=== PATIENT | male | born 1990 | race Native Hawaiian/Other Pacific Islander ===

== ENCOUNTER 2017-01-21 18:45 | Inpatient (IN) | payer OTHER ==
[~2017-01-21] VITALS: Ht 167.6 cm; Wt 79.4 kg
[2017-01-21] MEDS ORDERED: methylPREDNISolone 125 MG (Solu-MEDROL) VIAL IV STA (19:10)
[2017-01-21] MEDS ORDERED: NS IV 1000 ML 1,000 ML IV ONE (19:10)
[2017-01-21] MEDS ORDERED: KETOROLAC 30 MG/ML VIAL IVP STA (19:10)
[2017-01-21] MEDS ORDERED: ONDANSETRON 4 MG/2 ML (SDV) Z0FRAN IVP ONE (19:15)
[2017-01-21] MEDS ORDERED: diphenhydrAMINE 25 MG TAB (BENADRYL) PO ONE (19:15)
--- NOTE | 2017-01-21 19:15 | ED Integumentary General ---
General Chief Complaint: Bite-Animal/Human/Insect Stated Complaint: SPIDER BITE ON BACK Nursing Triage Note: patient reports spider bite to R shoulder x 3 days. Source: patient Exam Limitations: no limitations History of Present Illness Time seen by provider: 19:04 Initial Comments 26-year-old male patient presents to the emergency department with complaints of spider bite to the rt posterior shoulder 3 days ago. Patient states he killed the spider and has it at home in a container. States it has the classic violin marking of a brown recluse. Patient states he cleaned his apartment out that day. Patient reports 3 day onset of rash, pruritus, headache, nausea, poor appetite, headache, and generalized body aches. States today he began running a fever. Does have alternating chills and sweats. Location Injury Occurred: home Timing/Duration: getting worse, other (3 day onset) Location: extremities (rt posterior shoulder spider bite. ), generalized (rash) Possible Cause: other (spider bite) Modifying Factors: worse with scratching, worse with other (no improvement with ynvj-egw-fqtlvqo medications) Associated Symptoms: No blisters, No edema, fever, headache, No jaundice, malaise, No nasal congestion, No numbness, No pallor, No paresthesia, No petechiae, rash, No sore throat, swelling/mass/lumps ((right posterior shoulder) ) Allergies and Home Medications Allergies Coded Allergies: No Known Drug Allergies (Unverified , 01/21/17) Home Medications No Active Prescriptions or Reported Meds Constitutional: chills, diaphoresis (intermittent diaphoresis.), No dizziness, fever, malaise, No weakness EENTM: No ear discharge, No ear pain, No hoarseness, No mouth pain, No mouth swelling, No nose congestion, No tearing, No throat pain, No throat swelling Respiratory: No cough, No phlegm, No short of breath, No stridor, No wheezing Cardiovascular: No chest pain, No edema, No palpitations, No syncope Gastrointestinal: see HPI, No abdominal pain, No constipation, No diarrhea, loss of appetite, nausea, No vomiting Genitourinary: No decreased output, No dysuria, frequency, No hematuria, No pain Musculoskeletal: see HPI, joint pain (rt posterior shoulder pain.), No neck pain Skin: see HPI, lesions (rt posterior shoulder bite. ), pruritus, rash Psychiatric/Neurological: Headache, Denies Numbness, Denies Paresthesia, Denies Seizure, Denies Tingling, Denies Weakness All Other Systems Reviewed Negative Unless Noted: Yes (Negative excepted noted.) Past Bsyjvlv-Pxrqrp-Msvlci Hx Patient Social History Alcohol Use: Occasionally Uses Recreational Drug Use: Yes Drug of Choice: THC Smoking Status: Never a Smoker Recent Foreign Travel: No Contact w/Someone Who Travel: No Recent Infectious Disease Expo: No Immunizations Up To Date Tetanus Booster (TDap): Unknown Seasonal Allergies Seasonal Allergies: No Surgeries HX Surgeries: No Respiratory Hx Respiratory Disorders: No Cardiovascular Hx Cardiac Disorders: No Neurological Hx Neurological Disorders: No Genitourinary Hx Genitourinary Disorders: No Gastrointestinal Hx Gastrointestinal Disorders: No Musculoskeletal Hx Musculoskeletal Disorders: No Endocrine Hx Endocrine Disorders: No HEENT HX ENT Disorders: No Integumentary HX Skin/Integumentary Disorder: No Reviewed Nursing Assessment Reviewed/Agree w Nursing PMH: Yes Family Medical History Significant Family History: No Pertinent Family Hx Physical Exam Vital Signs Vital Sign - Last 12Hours 01/21/17 18:58 Temp 100.4 Pulse 100 Resp 18 B/P (MAP) 128/59 Pulse Ox 99 O2 Delivery Room Air Capillary Refill : Less Than 3 Seconds General Appearance: WD/WN, no apparent distress HEENT: PERRL/EOMI, pharynx normal Neck: non-tender, full range of motion, supple Cardiovascular: normal peripheral pulses, no edema, no murmur, tachycardia Respiratory: lungs clear, normal breath sounds, no respiratory distress Gastrointestinal: non tender, soft, No distended Back: other (see skin exam) Extremities: no pedal edema, normal capillary refill, inflammation (5x4 cm area of erythema with mild induration and central necrosis noted on the rt posterior shoulder. No active drainage or fluctuance noted. Soft tissue tenderness.) Neurologic/Psychiatric: proposal coordinator II-XII nml as tested, no motor/sensory deficits, alert, normal mood/affect, oriented x 3 Skin: warm/dry, rash Skin Problem Location: generalized Skin Problem Character: erythema (right posterior shoulder), rash, swelling ( right posterior shoulder), tenderness (right posterior shoulder), urticarial, warm (right posterior shoulder), other (induration and central necrosis noted on the right posterior shoulder) Progress/Results/Core Measures Results/Orders Lab Results Laboratory Tests Test 01/21/17 19:20 01/21/17 19:59 Range/Units White Blood Count 23.4 H 4.3-11.0 10^3/uL Red Blood Count 5.40 4.35-5.85 10^6/uL Hemoglobin 15.9 13.3-17.7 G/DL Hematocrit 47 40-54 % Mean Corpuscular Volume 87 80-99 FL Mean Corpuscular Hemoglobin 29 25-34 PG Mean Corpuscular Hemoglobin Concent 34 32-36 G/DL Red Cell Distribution Width 13.1 10.0-14.5 % Platelet Count 245 130-400 10^3/uL Mean Platelet Volume 9.4 7.4-10.4 FL Neutrophils (%) (Auto) 88 H 42-75 % Lymphocytes (%) (Auto) 6 L 12-44 % Monocytes (%) (Auto) 3 0-12 % Eosinophils (%) (Auto) 3 0-10 % Basophils (%) (Auto) 0 0-10 % Neutrophils # (Auto) 20.6 H 1.8-7.8 X 10^3 Lymphocytes # (Auto) 1.3 1.0-4.0 X 10^3 Monocytes # (Auto) 0.7 0.0-1.0 X 10^3 Eosinophils # (Auto) 0.7 H 0.0-0.3 10^3/uL Basophils # (Auto) 0.0 0.0-0.1 10^3/uL Neutrophils % (Manual) 75 % Lymphocytes % (Manual) 4 % Monocytes % (Manual) 6 % Eosinophils % (Manual) 3 % Basophils % (Manual) 0 % Band Neutrophils 12 % Blood Morphology Comment NORMAL Erythrocyte Sedimentation Rate 6 0-15 MM/HR Prothrombin Time 13.7 12.2-14.7 SEC INR Comment 1.1 0.8-1.4 Activated Partial Thromboplast Time 30 24-35 SEC Sodium Level 134 L 135-145 MMOL/L Potassium Level 3.9 3.6-5.0 MMOL/L Chloride Level 103 98-107 MMOL/L Carbon Dioxide Level 21 21-32 MMOL/L Anion Gap 10 5-14 MMOL/L Blood Urea Nitrogen 9 7-18 MG/DL Creatinine 1.08 0.60-1.30 MG/DL Estimat Glomerular Filtration Rate > 60 BUN/Creatinine Ratio 8 Glucose Level 106 H 70-105 MG/DL Lactic Acid Level 0.81 0.50-2.00 MMOL/L Calcium Level 8.9 8.5-10.1 MG/DL Total Bilirubin 1.7 H 0.1-1.0 MG/DL Aspartate Amino Transf (AST/SGOT) 23 5-34 U/L Alanine Aminotransferase (ALT/SGPT) 46 0-55 U/L Alkaline Phosphatase 80 40-136 U/L Total Creatine Kinase 133 30-200 U/L Troponin I < 0.30 <0.30 NG/ML C-Reactive Protein High Sensitivity 5.51 H 0.00-0.50 MG/DL Total Protein 7.2 6.4-8.2 G/DL Albumin 4.0 3.2-4.5 G/DL Urine Color YELLOW Urine Clarity SLIGHTLY CLOUDY Urine pH 6.5 5-9 Urine Specific [place] 1.015 L 1.016-1.022 Urine Protein NEGATIVE NEGATIVE Urine Glucose (UA) NEGATIVE NEGATIVE Urine Ketones NEGATIVE NEGATIVE Urine Nitrite NEGATIVE NEGATIVE Urine Bilirubin NEGATIVE NEGATIVE Urine Urobilinogen 4 H NORMAL MG/DL Urine Leukocyte Esterase NEGATIVE NEGATIVE Urine RBC (Auto) 1+ H NEGATIVE Urine RBC 5-10 H /HPF Urine WBC NONE /HPF Urine Crystals NONE /LPF Urine Bacteria TRACE /HPF Urine Casts NONE /LPF Urine Mucus NEGATIVE /LPF Urine Culture Indicated NO My Orders Orders - CORI WEINER Cbc With Automated Diff (01/21/17 19:10) Comprehensive Metabolic Panel (01/21/17 19:10) Hs C Reactive Protein (01/21/17 19:10) Erythrocyte Sedimentation Rate (01/21/17 19:10) Protime With Inr (01/21/17 19:10) Partial Thromboplastin Time (01/21/17 19:10) Ua Culture If Indicated (01/21/17 19:10) Saline Lock/Iv-Start (01/21/17 19:10) Ns Iv 1000 Ml (Sodium Chloride 0.9%) (01/21/17 19:10) Ondansetron Injection (Zofran Injectio (01/21/17 19:15) Ketorolac Injection (Toradol Injection) (01/21/17 19:10) Methylprednisolone Sod Succ (Solu-Medrol (01/21/17 19:10) Diphenhydramine Tablet (Benadryl Tablet) (01/21/17 19:15) Creatine Kinase (01/21/17 19:17) Lactic Acid Analyzer (01/21/17 19:17) Troponin I (01/21/17 19:17) Blood Culture (01/21/17 19:17) Manual Differential (01/21/17 19:20) Let Solution (Let Solution) (01/21/17 19:41) Dipht,Pertuss(Acell),Tet Adult (Boostrix (01/21/17 19:42) Vancomycin Injection (Vancomycin Injecti (01/21/17 20:15) Medications Given in ED Current Medications Medications Dose Ordered Sig/Cristi Route Start Time Stop Time Status Last Admin Dose Admin Diphenhydramine HCl 25 mg ONCE ONCE PO 01/21/17 19:15 01/21/17 19:16 DC 01/21/17 19:23 25 MG Ondansetron HCl 4 mg ONCE ONCE IVP 01/21/17 19:15 01/21/17 19:16 DC 01/21/17 19:23 4 MG Sodium Chloride 1,000 ml @ 0 mls/hr Q0M ONCE IV 01/21/17 19:10 01/21/17 19:14 DC 01/21/17 19:25 0 MLS/HR Vancomycin HCl 1000 mg/Sodium Chloride 250 ml @ 250 mls/hr ONCE ONCE IV 01/21/17 20:15 01/21/17 21:14 DC 01/21/17 20:42 250 MLS/HR Vital Signs/I&O Vital Sign - Last 12Hours 01/21/17 18:58 Temp 100.4 Pulse 100 Resp 18 B/P (MAP) 128/59 Pulse Ox 99 O2 Delivery Room Air Blood Pressure Mean: 82 Departure Communication Time/Spoke to Admitting Phy: 20:[address] Workman graciously accepts patient to her internal medicine service for IV antibiotics, IV hydration, symptomatic control and general surgery consult. Time/Spoke to Consulting Physi: 21:00 Communication/Consulting Dr. Chacon notified of consult. Progress Notes All laboratory and diagnostic findings discussed with the patient. Patient reports feeling better with IV fluids and medications given. Patient continues to have generalized urticarial rash. Patient agrees with plan for admission. Patient case discussed with Dr. Pradhan, he agrees with the plan of care. Impression Impression: Primary Impression: Sepsis Qualified Codes: A41.9 - Sepsis, unspecified organism Additional Impressions: Cellulitis of shoulder Toxic effect of venom of brown recluse spider, accidental (unintentional), initial encounter Disposition: ADMITTED INPATIENT Condition: Stable Decision to Admit Reason: Admit from ER (General) Decision to Admit/Date: Jan 21, 2017 Time/Decision to Admit Time: 20:50 Departure-Patient Inst. Referrals: NO,LOCAL PHYSICIAN (PCP) Primary Care Physician Scripts No Active Prescriptions or Reported Meds CORI WEINER Jan 21, 2017 19:15
[2017-01-21 19:31] LABS: BASOPHILS % (AUTO) 0 % (0-10); EOSINOPHILS # (AUTO) 0.7 10^3/uL (0.0-0.3); EOSINOPHILS % (AUTO) 3 % (0-10); LYMPHOCYTES # (AUTO) 1.3 X 10^3 (1.0-4.0); LYMPHOCYTES % (AUTO) 6 % (12-44); MEAN CORPUSCULAR HEMOGLOBIN 29 PG (25-34); MEAN CORPUSCULAR HGB CONC 34 G/DL (32-36); MEAN CORPUSCULAR VOLUME 87 FL (80-99); MEAN PLATELET VOLUME 9.4 FL (7.4-10.4); MONOCYTES # (AUTO) 0.7 X 10^3 (0.0-1.0); MONOCYTES % (AUTO) 3 % (0-12); NEUTROPHILS # (AUTO) 20.6 X 10^3 (1.8-7.8); NEUTROPHILS % (AUTO) 88 % (42-75); PLATELET COUNT 245 10^3/uL (130-400); RED CELL DISTRIBUTION WIDTH 13.1 % (10.0-14.5); WHITE BLOOD COUNT 23.4 10^3/uL (4.3-11.0)
[2017-01-21 19:41] LABS: INR 1.1 (0.8-1.4); PROTHROMBIN TIME PATIENT 13.7 SEC (12.2-14.7)
[2017-01-21] MEDS ORDERED: L.E.T. SYRINGE 5 ML MM STA (19:41)
[2017-01-21] MEDS ORDERED: TETANUS,DIPTH,PERTUSS P/F (BOOSTRIX) 0.5 ML VIAL IM STA (19:42)
[2017-01-21 19:44] LABS: BAND NEUTROPHILS 12 %; BASOPHILS % (MANUAL) 0 %; EOSINOPHILS % (MANUAL) 3 %; LYMPHOCYTES % (MANUAL) 4 %; NEUTROPHILS % (MANUAL) 75 %
[2017-01-21 19:52] LABS: ALANINE AMINOTRANSFERASE 46 U/L (0-55); ANION GAP 10 MMOL/L (5-14); ASPARTATE AMINO TRANSFERASE 23 U/L (5-34); BILIRUBIN,TOTAL 1.7 MG/DL (0.1-1.0); BLOOD UREA NITROGEN 9 MG/DL (7-18); BUN/CREATININE RATIO 8; CALCIUM 8.9 MG/DL (8.5-10.1); CARBON DIOXIDE 21 MMOL/L (21-32); CHLORIDE 103 MMOL/L (98-107); CREATINE KINASE 133 U/L (30-200); CREATININE SERUM 1.08 MG/DL (0.60-1.30); GFR ESTIMATED > 60; GLUCOSE 106 MG/DL (70-105); POTASSIUM 3.9 MMOL/L (3.6-5.0); SODIUM 134 MMOL/L (135-145); TOTAL PROTEIN 7.2 G/DL (6.4-8.2); hs C REACTIVE PROTEIN 5.51 MG/DL (0.00-0.50)
[2017-01-21 19:56] LABS: ERYTHROCYTE SEDIMENTATION RATE 6 MM/HR (0-15)
[2017-01-21 19:57] LABS: TROPONIN I < 0.30 NG/ML (<0.30)
[2017-01-21] MEDS ORDERED: VANCOMYCIN INJECTION 1,000 MG in NS (IVPB) 250 ML IV ONE (20:15)
[2017-01-21 20:26] LABS: BILIRUBIN,URINE NEGATIVE (NEGATIVE); KETONES,URINE NEGATIVE (NEGATIVE); LEUKOCYTE ESTERASE ,URINE NEGATIVE (NEGATIVE); NITRITE,URINE NEGATIVE (NEGATIVE); PH,URINE 6.5 (5-9); PROTEIN,URINE NEGATIVE (NEGATIVE); UROBILINOGEN,URINE 4 MG/DL (NORMAL)
[2017-01-21] MEDS ORDERED: NS IV 1000 ML 1,000 ML ONE ×2 (21:39→21:40)
[2017-01-21 21:50] VITALS: BP 129/62
[2017-01-21] MEDS: NS IV 1000 ML 1,000 ML IV SCH (21:50)
[2017-01-21] MEDS ORDERED: ONDANSETRON 4 MG/2 ML (SDV) Z0FRAN IV PRN (22:00)
[2017-01-21] MEDS ORDERED: HYDROcodone/APAP 5 MG/325 MG (LORTAB) TAB PO PRN (22:15)
[2017-01-21] MEDS ORDERED: CATHETER FLUSH 10 ML SYR IV PRN (22:15)
[2017-01-21] MEDS ORDERED: KETOROLAC 30 MG/ML VIAL IV PRN (22:15)
[2017-01-21] MEDS ORDERED: diphenhydrAMINE 25 MG TAB (BENADRYL) PO PRN (22:15)
[2017-01-21] MEDS ORDERED: ACETAMINOPHEN 325 MG TABLET/CAPLET (TYLENOL) PO PRN (22:15)
[2017-01-21] MEDS ORDERED: MUPIROCIN 2% OINT 22 GM (BACTROBAN) TUBE ONE (22:31)
[2017-01-21] MEDS: CATHETER FLUSH 10 ML SYR IV SCH (22:54)
[2017-01-22 00:37] VITALS: BP 115/57
[2017-01-22 03:39] VITALS: BP 115/68
[2017-01-22] MEDS: NS IV 1000 ML 1,000 ML IV SCH ×3 (05:46→15:32)
[2017-01-22 06:13] LABS: BASOPHILS % (AUTO) 0 % (0-10); EOSINOPHILS % (AUTO) 0 % (0-10); LYMPHOCYTES # (AUTO) 0.7 X 10^3 (1.0-4.0); LYMPHOCYTES % (AUTO) 3 % (12-44); MEAN CORPUSCULAR HEMOGLOBIN 29 PG (25-34); MEAN CORPUSCULAR HGB CONC 34 G/DL (32-36); MEAN CORPUSCULAR VOLUME 87 FL (80-99); MEAN PLATELET VOLUME 9.5 FL (7.4-10.4); MONOCYTES # (AUTO) 0.3 X 10^3 (0.0-1.0); MONOCYTES % (AUTO) 2 % (0-12); NEUTROPHILS # (AUTO) 21.1 X 10^3 (1.8-7.8); NEUTROPHILS % (AUTO) 95 % (42-75); PLATELET COUNT 250 10^3/uL (130-400); RED BLOOD COUNT 4.86 10^6/uL (4.35-5.85); WHITE BLOOD COUNT 22.2 10^3/uL (4.3-11.0)
[2017-01-22 06:34] LABS: ALANINE AMINOTRANSFERASE 41 U/L (0-55); ALBUMIN 3.7 G/DL (3.2-4.5); ANION GAP 9 MMOL/L (5-14); ASPARTATE AMINO TRANSFERASE 17 U/L (5-34); BILIRUBIN,TOTAL 1.1 MG/DL (0.1-1.0); BLOOD UREA NITROGEN 12 MG/DL (7-18); BUN/CREATININE RATIO 12; CALCIUM 8.8 MG/DL (8.5-10.1); CARBON DIOXIDE 21 MMOL/L (21-32); CHLORIDE 106 MMOL/L (98-107); CREATININE SERUM 1.04 MG/DL (0.60-1.30); GFR ESTIMATED > 60; GLUCOSE 170 MG/DL (70-105); SODIUM 136 MMOL/L (135-145); TOTAL PROTEIN 6.7 G/DL (6.4-8.2); hs C REACTIVE PROTEIN 7.18 MG/DL (0.00-0.50)
[2017-01-22] MEDS ORDERED: VANCOMYCIN 1 GM/NS 250 ML IVPB IV SCH ×2 (08:00)
[2017-01-22] MEDS: FAMOTIDINE 20 MG (PEPCID) TABLET PO SCH ×2 (08:01→20:25)
[2017-01-22] MEDS ORDERED: VANCOMYCIN 500 MG/NS 100 ML IVPB IV NR ×2 (08:06)
[2017-01-22] MEDS: DAPSONE 100 MG TABLET PO SCH ×2 (08:08→20:27)
[2017-01-22] MEDS ORDERED: VANCOMYCIN INJECTION 750 MG in NS (IVPB) 100 ML IV NR (08:10)
[2017-01-22 08:15] VITALS: BP 105/57
[2017-01-22 12:10] VITALS: BP 111/54
--- NOTE | 2017-01-22 12:12 | History & Physical-Hospitalist ---
HPI History of Present Illness: HPI/Chief Complaint The patient is a 26 Jessica B 27-year-old male. He presented to the emergency room yesterday afternoon with a complaint of a spider bite. He reports that it began about 3 days prior when he had cleaned his apartment. He was then sitting in a chair watching TV in the evening and felt a stinging pain in his right shoulder. He then killed what he described as a brown recluse spider. There has been no pus or bleeding in the area. He reports having had a fever. He has developed a rather universal macular rash with itching. His temperature here has been a maximum of 100.4. His white blood count has been noted to be in the 22-23,000 range. Source: patient Exam Limitations: no limitations Date Seen 01/22/17 Attending Physician Steffi Workman DO PCP No,Local Physician Referring Physician Date of Admission Jan 21, 2017 at 21:02 Home Medications & Allergies Home Medications Reviewed patient Home Medication Reconciliation Form Allergies Allergies Coded Allergies No Known Drug Allergies (Unverified01/21/17) Past Oiuoedi-Rpxahp-Bdiing Hx Patient Social History Alcohol Use: Denies Use Recreational Drug Use: No Drug of Choice: THC Smoking Status: Never a Smoker Physical Abuse Screen: No Sexual Abuse: No Recent Foreign Travel: No Contact w/other who traveled: No Recent Hopitalizations: No Recent Infectious Disease Expo: No Immunizations Up To Date Tetanus Booster (TDap): Unknown Seasonal Allergies Seasonal Allergies: No Surgeries HX Surgeries: No Respiratory Hx Respiratory Disorders: No Cardiovascular Hx Cardiovascular Disorders: No Neurological Hx Neurological Disorders: No Genitourinary Hx Genitourinary Disorders: No Gastrointestinal Hx Gastrointestinal Disorders: No Musculoskeletal Hx Musculoskeletal Disorders: No Endocrine Hx Endocrine Disorders: No HEENT HX ENT Disorders: No Integumentary HX Skin/Integumentary Disorder: No Blood Transfusions Adverse Reaction to a Blood Tr: No Reviewed Nursing Assessment Reviewed/Agree w Nursing PMH: Yes Family Medical History Significant Family History: No Pertinent Family Hx Review of Systems Constitutional: see HPI, chills, fever EENTM: no symptoms reported Respiratory: no symptoms reported Cardiovascular: no symptoms reported Gastrointestinal: no symptoms reported Genitourinary: no symptoms reported Musculoskeletal: no symptoms reported Skin: pruritus, rash Psychiatric/Neurological: No Symptoms Reported Physical Exam Physical Exam Vital Signs Vital Sign - Last 12Hours 01/21/17 18:58 Temp 100.4 Pulse 100 Resp 18 B/P (MAP) 128/59 Pulse Ox 99 O2 Delivery Room Air Capillary Refill : Less Than 3 Seconds General Appearance: No Apparent Distress, WD/WN Eyes: Bilateral Eye Normal Inspection HEENT: Normal ENT Inspection Neck: Normal Inspection Respiratory: Chest Non Tender, Lungs Clear, Normal Breath Sounds, No Accessory Muscle Use, No Respiratory Distress Cardiovascular: Regular Rate, Rhythm, No Edema, No Gallop, No JVD, No Murmur, Normal Peripheral Pulses Gastrointestinal: Normal Bowel Sounds, No Organomegaly, No Pulsatile Mass, Non Tender, Soft Neurologic/Psychiatric: Alert, Oriented x3, No Motor/Sensory Deficits, Normal Mood/Affect Comments There is a small area over the upper medial border of the right scapula. This has a tight eschar. There is no circumlesional erythema. There is a diffuse red macular rash including the total of the thorax anterior and posterior. It is more blotchy on the arms but is most notable on the palmar aspect of the arm to the axilla and worse on the right than left. There is a similar rash on the right leg to the knee and in the popliteal space. This is not so notable on the left however there are 2 punctate lesions at the MP joints dorsally and also the left second toe Results Results/Procedures Lab Laboratory Tests 01/21/17 19:20 01/22/17 05:51 Assessment/Plan Admission Diagnosis 1.Diffuse pruritic eruption. 2.eschar right shoulder blade not typical of recluse spider bite Assessment and Plan Continue vancomycin at this time. Repeat CBC tomorrow. Add Solu-Medrol and Benadryl. Clinical Quality Measures DVT/VTE Risk/Contraindication: Risk Factor Score Per Nursin RFS Level Per Nursing on Admit: 4+=Very High MADDIE BELLA MD January 22, 2017 12:12
[2017-01-22] MEDS ORDERED: diphenhydrAMINE 25 MG TAB (BENADRYL) PO PRN (12:15)
[2017-01-22] MEDS: methylPREDNISolone 125 MG (Solu-MEDROL) VIAL IVP SCH ×3 (12:59→23:54)
[2017-01-22] MEDS: CATHETER FLUSH 10 ML SYR IV SCH ×2 (13:03→19:39)
--- NOTE | 2017-01-22 13:22 | Consultation ---
History of Present Illness History of Present Illness Patient Consulted On(anibal/time) 01/22/17 13:16 Date of Admission History of Present Illness Surgery is asked to consult regarding spider bite and possible need for debridement. HPI The patient is a 26-year-old male. He presented to the emergency room yesterday afternoon with a complaint of a spider bite. He reports that it began about 3 days prior when he had cleaned his apartment. He was then sitting in a chair watching TV in the evening and felt a stinging pain in his right shoulder. He then killed what he described as a brown recluse spider. There has been no pus or bleeding in the area. He reports having had a fever. He has developed a rather universal macular rash with itching. His temperature here has been a maximum of 100.4. His white blood count has been noted to be in the 22-23,000 range. While in the ER he was noted to have shaking chills, and "major swelling around the bite, with questionable beginning of necrosis". Pt seen at appx 10:30 today, he was asleep and easily woken up. States he feels much better, pain is minimal and was able to sleep through the night. Allergies and Home Medications Allergies Coded Allergies: No Known Drug Allergies (Unverified , 01/21/17) Home Medications No Active Prescriptions or Reported Meds Past Pqozyau-Lqmcvj-Synsad Hx Patient Social History Alcohol Use: Denies Use Recreational Drug Use: No Drug of Choice: THC Smoking Status: Never a Smoker Recent Foreign Travel: No Contact w/Someone Who Travel: No Recent Infectious Disease Expo: No Recent Hopitalizations: No Physical Abuse Screen: No Sexual Abuse: No Immunizations Up To Date Tetanus Booster (TDap): Unknown Seasonal Allergies Seasonal Allergies: No Surgeries HX Surgeries: No Respiratory Hx Respiratory Disorders: No Cardiovascular Hx Cardiac Disorders: No Neurological Hx Neurological Disorders: No Genitourinary Hx Genitourinary Disorders: No Gastrointestinal Hx Gastrointestinal Disorders: No Musculoskeletal Hx Musculoskeletal Disorders: No Endocrine Hx Endocrine Disorders: No HEENT HX ENT Disorders: No Cancer Hx Cancer: No Integumentary HX Skin/Integumentary Disorder: No Blood Transfusions Adverse Reaction to a Blood Tr: No Reviewed Nursing Assessment Reviewed/Agree w Nursing PMH: Yes Family Medical History Significant Family History: No Pertinent Family Hx, Diabetes (denies any in his parents) Review of Systems-General Constitutional: chills, diaphoresis, malaise EENTM: No epistaxis, No throat pain, No throat swelling Respiratory: No cough, No dyspnea on exertion Cardiovascular: No edema Gastrointestinal: No abdominal pain, No hematemesis Genitourinary: No dysuria, No frequency Musculoskeletal: joint swelling, muscle stiffness, muscle cramps Skin: lesions, pruritus, rash Physical Exam-General Problems Physical Exam Vital Signs Vital Sign - Last 12Hours 01/21/17 18:58 Temp 100.4 Pulse 100 Resp 18 B/P (MAP) 128/59 Pulse Ox 99 O2 Delivery Room Air Capillary Refill : Less Than 3 Seconds General Appearance: WD/WN, no apparent distress Eyes: Bilateral Eye EOMI, Bilateral Eye PERRL HEENT: pharynx normal, No scleral icterus (R) Neck: full range of motion, supple, normal inspection Respiratory: lungs clear, normal breath sounds, no respiratory distress, no accessory muscle use Cardiovascular: regular rate, rhythm, no murmur Gastrointestinal: normal bowel sounds, non tender, soft, no organomegaly, no pulsatile mass Extremities: normal range of motion, normal inspection, no pedal edema, no calf tenderness Neurologic/Psychiatric: stakes player II-XII nml as tested, no motor/sensory deficits, alert, normal mood/affect, oriented x 3 Skin: other (mild erythematous rash with small bumps over his back, area on right shoulder blade looks like it has scabbed over, no erythema around this and signs of infection or necrosis) Lymphatic: no adenopathy (neck, axilla or groin) Data Review Labs Laboratory Tests 01/21/17 19:20: White Blood Count 23.4H, Red Blood Count 5.40, Hemoglobin 15.9, Hematocrit 47, Mean Corpuscular Volume 87, Mean Corpuscular Hemoglobin 29, Mean Corpuscular Hemoglobin Concent 34, Red Cell Distribution Width 13.1, Platelet Count 245, Mean Platelet Volume 9.4, Neutrophils (%) (Auto) 88H, Lymphocytes (%) (Auto) 6L , Monocytes (%) (Auto) 3, Eosinophils (%) (Auto) 3, Basophils (%) (Auto) 0, Neutrophils # (Auto) 20.6H, Lymphocytes # (Auto) 1.3, Monocytes # (Auto) 0.7, Eosinophils # (Auto) 0.7H, Basophils # (Auto) 0.0, Neutrophils % (Manual) 75, Lymphocytes % (Manual) 4, Monocytes % (Manual) 6, Eosinophils % (Manual) 3, Basophils % (Manual) 0, Band Neutrophils 12, Blood Morphology Comment NORMAL, Erythrocyte Sedimentation Rate 6, Prothrombin Time 13.7, INR Comment 1.1, Activated Partial Thromboplast Time 30, Sodium Level 134L, Potassium Level 3.9, Chloride Level 103, Carbon Dioxide Level 21, Anion Gap 10, Blood Urea Nitrogen 9 , Creatinine 1.08, Estimat Glomerular Filtration Rate > 60, BUN/Creatinine Ratio 8, Glucose Level 106H, Lactic Acid Level 0.81, Calcium Level 8.9, Total Bilirubin 1.7H, Aspartate Amino Transf (AST/SGOT) 23, Alanine Aminotransferase ( ALT/SGPT) 46, Alkaline Phosphatase 80, Total Creatine Kinase 133, Troponin I < 0.30, C-Reactive Protein High Sensitivity 5.51H, Total Protein 7.2, Albumin 4.0 01/21/17 19:59: Urine Color YELLOW, Urine Clarity SLIGHTLY CLOUDY, Urine pH 6.5, Urine Specific [place] 1.015L, Urine Protein NEGATIVE, Urine Glucose (UA) NEGATIVE, Urine Ketones NEGATIVE, Urine Nitrite NEGATIVE, Urine Bilirubin NEGATIVE, Urine Urobilinogen 4H, Urine Leukocyte Esterase NEGATIVE, Urine RBC (Auto) 1+H, Urine RBC 5-10H, Urine WBC NONE, Urine Crystals NONE, Urine Bacteria TRACE, Urine Casts NONE, Urine Mucus NEGATIVE, Urine Culture Indicated NO 01/22/17 05:51: White Blood Count 22.2H, Red Blood Count 4.86, Hemoglobin 14.3, Hematocrit 43, Mean Corpuscular Volume 87, Mean Corpuscular Hemoglobin 29, Mean Corpuscular Hemoglobin Concent 34, Red Cell Distribution Width 13.0, Platelet Count 250, Mean Platelet Volume 9.5, Neutrophils (%) (Auto) 95H, Lymphocytes (%) (Auto) 3L , Monocytes (%) (Auto) 2, Eosinophils (%) (Auto) 0, Basophils (%) (Auto) 0, Neutrophils # (Auto) 21.1H, Lymphocytes # (Auto) 0.7L, Monocytes # (Auto) 0.3, Eosinophils # (Auto) 0.0, Basophils # (Auto) 0.0, Sodium Level 136, Potassium Level 4.0, Chloride Level 106, Carbon Dioxide Level 21, Anion Gap 9, Blood Urea Nitrogen 12, Creatinine 1.04, Estimat Glomerular Filtration Rate > 60, BUN/ Creatinine Ratio 12, Glucose Level 170H, Lactic Acid Level 1.80, Calcium Level 8.8, Total Bilirubin 1.1H, Aspartate Amino Transf (AST/SGOT) 17, Alanine Aminotransferase (ALT/SGPT) 41, Alkaline Phosphatase 69, C-Reactive Protein High Sensitivity 7.18H, Total Protein 6.7, Albumin 3.7 Assessment/Plan Assessment/Plan Assessment/Plan 1. Spider Bite with severe serum reaction - IVF, IV ABX seems to have improved greatly. 2. Cellullitis appears to be more of rash possibly due to serum sickness 3 Leukocytosis No signs of necrosis, pt will not need any surgical debridement (although this is not usually done anyway, unless it is really bad). Will sign off and can reconsult if needed. Thank you for this consult. Clinical Quality Measures DVT/VTE Risk/Contraindication: Risk Factor Score Per Nursin RFS Level Per Nursing on Admit: 4+=Very High YINKA TAPIA DO January 22, 2017 13:22
[2017-01-22 16:00] VITALS: BP 117/69
[2017-01-22] MEDS ORDERED: VANCOMYCIN 1250 MG/NS 250 ML IVPB IV SCH ×2 (20:00)
[2017-01-23] VITALS: BP 116/86
[2017-01-23] MEDS: NS IV 1000 ML 1,000 ML IV SCH ×3 (00:55→18:21)
[2017-01-23] MEDS: CATHETER FLUSH 10 ML SYR IV SCH ×3 (05:28→22:08)
[2017-01-23] MEDS: methylPREDNISolone 125 MG (Solu-MEDROL) VIAL IVP SCH ×3 (05:33→21:41)
[2017-01-23] MEDS ORDERED: TROUGH ORDER-PHARMACY XX NR (07:00)
[2017-01-23 07:25] LABS: BASOPHILS % (AUTO) 0 % (0-10); EOSINOPHILS % (AUTO) 0 % (0-10); LYMPHOCYTES % (AUTO) 4 % (12-44); MEAN CORPUSCULAR HEMOGLOBIN 29 PG (25-34); MEAN CORPUSCULAR HGB CONC 33 G/DL (32-36); MEAN CORPUSCULAR VOLUME 88 FL (80-99); MEAN PLATELET VOLUME 9.7 FL (7.4-10.4); MONOCYTES # (AUTO) 0.6 X 10^3 (0.0-1.0); MONOCYTES % (AUTO) 3 % (0-12); NEUTROPHILS # (AUTO) 20.8 X 10^3 (1.8-7.8); NEUTROPHILS % (AUTO) 93 % (42-75); PLATELET COUNT 240 10^3/uL (130-400); WHITE BLOOD COUNT 22.4 10^3/uL (4.3-11.0)
[2017-01-23 08:00] VITALS: BP 134/68
[2017-01-23] MEDS: DAPSONE 100 MG TABLET PO SCH ×2 (08:21→21:41)
[2017-01-23] MEDS: FAMOTIDINE 20 MG (PEPCID) TABLET PO SCH ×2 (08:22→21:41)
[2017-01-23] MEDS: VANCOMYCIN 1500 MG/NS 500 ML IVPB IV SCH ×4 (09:03→17:32)
--- NOTE | 2017-01-23 12:53 | Progress Note-Hospitalist ---
Standard Progress Note Progress Notes/Assess & Plan Date Seen 01/23/17 Diagnosis 1.Diffuse pruritic eruption. 2.eschar right shoulder blade not typical of recluse spider bite Assess & Plan/Chief Complaint The patient is afebrile. He reports that his rash and itch are greatly better. Microbiology called me earlier this morning and reported one tube growing coagulase negative staph. He is currently on vancomycin which would be the drug of choice. Physical exam: The trunk now shows a minimum of the red rash so prevalent yesterday. Lungs are clear to auscultation. CV is regular without murmur. The rash on the legs and arms is also minimized. The eschar described on the border the right scapula yesterday remains unchanged. Impression: Diffuse pruritic eruption now resolving. 2.coagulase negative staph sepsis. Plan: Reduce IV steroids. Continue vancomycin Labs Laboratory Tests 01/21/17 19:20 01/22/17 05:51 01/23/17 07:00 MADDIE BELLA MD January 23, 2017 12:53
[2017-01-23 16:12] VITALS: BP 117/58
[2017-01-24 00:51] VITALS: BP 122/58
[2017-01-24] MEDS: VANCOMYCIN 1500 MG/NS 500 ML IVPB IV SCH ×2 (02:46)
[2017-01-24] MEDS: CATHETER FLUSH 10 ML SYR IV SCH (06:35)
[2017-01-24] MEDS ORDERED: TROUGH ORDER-PHARMACY XX NR (07:00)
[2017-01-24 08:00] VITALS: BP 134/76
[2017-01-24] MEDS: methylPREDNISolone 125 MG (Solu-MEDROL) VIAL IVP SCH (08:28)
[2017-01-24] MEDS: FAMOTIDINE 20 MG (PEPCID) TABLET PO SCH (08:28)
[2017-01-24] MEDS: DAPSONE 100 MG TABLET PO SCH (08:29)
[2017-01-24] MEDS ORDERED: VANCOMYCIN INJECTION 1,250 MG in NS (IVPB) 250 ML IV SCH (09:00)
--- NOTE | 2017-01-24 11:30 | Progress Note-Hospitalist ---
Standard Progress Note Progress Notes/Assess & Plan Date Seen 01/24/17 Diagnosis 1.Diffuse pruritic eruption. 2.eschar right shoulder blade not typical of recluse spider bite Assess & Plan/Chief Complaint The patient reports he feels much better. The itching is basically gone. The coag negative Staphylococcus is widely sensitive which will allow us to discharge him today. Physical exam: There is basically total resolution of the erythematous rash over the anterior and posterior trunk as well as the legs. The lungs are clear to auscultation. CV is regular without murmur. Impression: Coagulase negative staphylococcal septicemia. 2.diffuse erythematous and urticarial rash. Labs Laboratory Tests 01/23/17 07:00 Final Diagnosis Staphylococcus, coagulase negative, septicemia. 2.diffuse erythematous and pruritic rash presumably secondary to number 1. MADDIE BELLA MD January 24, 2017 11:30
[2017-01-24] MEDS ORDERED: CEFD300C3 PO (11:39)
--- NOTE | 2017-01-24 11:40 | Discharge Inst-Simple/Standard ---
Discharge Inst-Standard Patient Instructions/Follow Up Plan of Care/Instructions/FU: Complete the 1 week course of oral antibiotics. Activity as Tolerated: Yes Goal: Return to usual state of health Discharge Diet: No Restrictions Return to [facility] For: Recurrence of symptoms MADDIE BELLA MD January 24, 2017 11:39
== END 2017-01-24 12:00 | disposition home or self-care (01) | DRG 917 ==
LOC: EDUNIT# 18:45 → ER 18:49 → 4TH 21:02
PROVIDERS: ADMIT Internal Medicine; ATTEND Internal Medicine
DX: T63.331A Toxic effect of venom of brown recluse spider, accidental (unintentional), initial encounter (principal); A41.2 Sepsis due to unspecified staphylococcus; L29.9 Pruritus, unspecified
CPT/HCPCS: 36415; 80053; 80202; 81000; 82550; 83605; 84484; 85007; 85025; 85027; 85610; 85652; 85730; 86141; 87040; 87186; 90471; 90715; 96361; 96365; 96375

== ENCOUNTER 2018-09-19 06:46 | Emergency (ER) | payer SELFPAY ==
[~2018-09-19] VITALS: Ht 167.6 cm; Wt 78.0 kg
[~2018-09-19 06:46] MED LIST: CEFD300C3 PO
[2018-09-19] MEDS ORDERED: AMOX500T2 PO (09:29)
[2018-09-19] MEDS ORDERED: TRAM-42 PO (09:29)
--- NOTE | 2018-09-19 09:29 | ED EENT ---
History of Present Illness General Chief Complaint: Dental Problems/Pain Stated Complaint: DENTAL PAIN Nursing Triage Note: Pt reports L sided dental pain x2-3 days Source: patient Exam Limitations: no limitations Allergies and Home Medications Allergies Coded Allergies: No Known Drug Allergies (Unverified , 01/21/17) Home Medications Cefdinir 300 Mg Capsule, 300 MG PO BID Prescribed by: MADDIE BELLA on 01/24/17 1139 Past Msyeoaf-Rezwma-Lqmlmb Hx Patient Social History Alcohol Use: Occasionally Uses Recreational Drug Use: Yes (marijuana) Drug of Choice: THC Smoking Status: Never a Smoker Recent Foreign Travel: No Contact w/Someone Who Travel: No Recent Infectious Disease Expo: No Recent Hopitalizations: No Immunizations Up To Date Tetanus Booster (TDap): Unknown Seasonal Allergies Seasonal Allergies: No Past Medical History Surgeries: No Respiratory: No Cardiac: No Neurological: No Genitourinary: No Gastrointestinal: No Musculoskeletal: No Endocrine: No HEENT: No Cancer: No Psychosocial: Yes Depression Integumentary: No Blood Disorders: No Adverse Reaction/Blood Tranf: No Family Medical History No Pertinent Family Hx, Diabetes Physical Exam Vital Signs Vital Signs - First Documented 09/19/18 07:40 Temp 98.2 Pulse 84 Resp 18 B/P (MAP) 117/67 (84) Pulse Ox 97 O2 Delivery Room Air Height, Weight, BMI Height: 5'6.00" Weight: 172lbs. 0.0oz. 78.517310bg; 28.3 BMI Method:Stated Progress/Results/Core Measures Results/Orders Vital Signs/I&O 09/19/18 07:40 Temp 98.2 Pulse 84 Resp 18 B/P (MAP) 117/67 (84) Pulse Ox 97 O2 Delivery Room Air Blood Pressure Mean: 84 Departure Impression Primary Impression: Pain, dental Disposition: 01 HOME, SELF-CARE Condition: Improved Departure-Patient Inst. Decision time for Depature: 09:26 Referrals: NO,LOCAL PHYSICIAN (PCP/Family) Primary Care Physician Patient Instructions: Dental Pain (DC) Add. Discharge Instructions: You may be developing a dental abscess as a cause of your pain. Please follow- up with a dentist as soon as possible. For pain, start with ibuprofen up to 600 mg every 6 hours as needed. Add Tylenol (acetaminophen) up to 1000 mg every 6 hours. Use the Ultram (tramadol) as prescribed for pain not controlled by decp-lta-upxymma medications. Complete your antibiotic as prescribed. Call your dentist or return to care if symptoms are worsening. All discharge instructions reviewed with patient and/or family. Voiced understanding. Scripts Tramadol HCl (Ultram) 50 Mg Tablet 50 MG PO Q6H PRN for PAIN-MODERATE TO SEVERE, #20 TAB Prov: JENNIE BARLOW MD 09/19/18 Amoxicillin (Amoxicillin) 500 Mg Tablet 1000 MG PO BID, #40 TAB Prov: JENNIE BARLOW MD 09/19/18 JENNIE BARLOW MD Sep 19, 2018 09:29
[2018-09-19 09:40] VITALS: BP 117/67
== END 2018-09-19 09:40 | disposition home or self-care (01) ==
LOC: EDUNIT# 06:46 → ER 06:48
DX: K08.89 Other specified disorders of teeth and supporting structures (principal); F12.10 Cannabis abuse, uncomplicated; F32.9 Major depressive disorder, single episode, unspecified
CPT/HCPCS: 99281

== ENCOUNTER → 2020-11-11 | Outpatient (CLI) | payer OTHER ==
[~2020-11-11] MED LIST changes: +AMOX500T2 PO; +TRAM-42 PO
--- NOTE | 2020-11-11 10:05 | Diagnostic Imaging Report ---
PROCEDURE: CT sinuses without contrast TECHNIQUE: Multiple contiguous axial images were obtained through the sinuses without the use of intravenous contrast. Coronal and sagittal reformations were then performed. Auto Exposure Controls were utilized during the CT exam to meet ALARA standards for radiation dose reduction. INDICATION: Sinus pain and pressure with deviated septum. FINDINGS: There is significant rightward deviation of the nasal septum with rightward nasal septal spurring. Ostiomeatal complexes remain patent. There is no evidence of mural thickening or air-fluid level within the paranasal sinuses. Mastoid air cells and middle ear cavities are otherwise unremarkable as well. There does appear to be cerumen or debris within the external auditory canals. IMPRESSION: Rightward deviation and spurring of the nasal septum without evidence of sinusitis or other acute sinus disease. Dictated by: Dictated on workstation # [id number]
== END ==
LOC: RAD 09:45
PROVIDERS: ATTEND Otolaryngology Otolaryngology/Facial Plastic Surgery
DX: J34.2 Deviated nasal septum (principal)
CPT/HCPCS: 70486

== ENCOUNTER 2020-12-22 05:29 | Outpatient (RCR) | payer OTHER ==
[~2020-12-22] VITALS: Ht 167.7 cm; Wt 79.5 kg
== END 2020-12-22 16:08 | disposition home or self-care (01) ==
LOC: PREOP 05:29
PROVIDERS: ATTEND Otolaryngology Otolaryngology/Facial Plastic Surgery
DX: Z01.812 Encounter for preprocedural laboratory examination (principal); J32.9 Chronic sinusitis, unspecified; J34.2 Deviated nasal septum; Z20.822 Contact with and (suspected) exposure to COVID-19
CPT/HCPCS: 87635

== ENCOUNTER 2020-12-24 06:27 | Day surgery (SDC) | payer OTHER ==
[2020-12-24] VITALS (11 sets, daily range): BP systolic 97–137; BP diastolic 55–88
[~2020-12-24] VITALS: Ht 167.7 cm; Wt 78.2 kg
[2020-12-24] MEDS ORDERED: LACTATED RINGERS 1,000 ML IV PRN (06:45)
[2020-12-24] MEDS ORDERED: GLYCOPYRROLATE 0.2 MG/ML (ROBINUL) 2 ML VIAL ONE (06:59)
[2020-12-24] MEDS ORDERED: ONDANSETRON 4 MG/2 ML (SDV) Z0FRAN ONE (06:59)
[2020-12-24] MEDS ORDERED: LIDOCAINE PF 2% 5 ML (XYLOCAINE) VIAL ONE (06:59)
[2020-12-24] MEDS ORDERED: SEVOFLURANE (ULTANE) 15 ML INHAL SOLN ONE (06:59)
[2020-12-24] MEDS ORDERED: ROCURONIUM 10 MG/ML 5 ML SYRINGE IV ONE (06:59)
[2020-12-24] MEDS ORDERED: NEOSTIGMINE 3 MG/3 ML VIAL ONE (06:59)
[2020-12-24] MEDS ORDERED: MIDAZOLAM 2 MG/2 ML (VERSED) VIAL ONE ×2 (06:59→07:02)
[2020-12-24] MEDS ORDERED: proPOfol 200 MG/20 ML (DIPRIVAN) VIAL IV ONE (06:59)
[2020-12-24] MEDS ORDERED: fentaNYL INJ 100 MCG/2 ML AMP ONE (06:59)
[2020-12-24] MEDS ORDERED: MIDAZOLAM 2 MG/2 ML (VERSED) VIAL IV ONE (07:00)
--- NOTE | 2020-12-24 07:04 | Progress Note-Pre Operative ---
Pre-Operative Progress Note H&P Reviewed The H&P was reviewed, patient examined and no changes noted. Date Seen by Provider: Dec 24, 2020 Time Seen by Provider: 06:45 Date H&P Reviewed: Dec 24, 2020 Time H&P Reviewed: 06:45 Pre-Operative Diagnosis: Deviated Nasal Septum, Bilat Hyper of INf Turbs CHANDU NANCE MD Dec 24, 2020 07:03
[2020-12-24] MEDS ORDERED: COCAINE HCL 4% 2 ML SYR ONE (07:06)
[2020-12-24] MEDS ORDERED: LIDOCAINE/EPI 1%-1:100,000 (XYLOCAINE) 20ML ONE (07:06)
[2020-12-24] MEDS ORDERED: PHENYLEPHRINE 0.5% NASAL SPR (NEO-SYNEPHRINE) REG ONE (07:06)
[2020-12-24] MEDS ORDERED: PHENYLEPHRINE 100 MCG/ML 10 ML (ANESTHESIA) SYR ONE (07:59)
[2020-12-24] MEDS ORDERED: ONDANSETRON 4 MG/2 ML (SDV) Z0FRAN IVP PRN (08:45)
[2020-12-24] MEDS ORDERED: morphine INJ 10 MG/ML 1ML (SYR OR VIAL) IVP ONE (08:45)
[2020-12-24] MEDS ORDERED: HYDROmorphone 2 MG/ML VIAL (DILAUDID) IV ONE (08:45)
[2020-12-24] MEDS ORDERED: AMOX-355 PO (09:45)
[2020-12-24] MEDS ORDERED: TRM50T PO (09:45)
--- NOTE | 2020-12-24 09:57 | Anesthesia-General Post-Op ---
General Patient Condition Mental Status/LOC: Same as Preop Cardiovascular: Satisfactory Nausea/Vomiting: Absent Respiratory: Satisfactory Pain: Controlled Complications: Absent Post Op Complications Complications None Follow Up Care/Instructions Patient Instructions None needed. Anesthesia/Patient Condition Patient Condition Patient is doing well, no complaints, stable vital signs, no apparent adverse anesthesia problems. GERBER GUILLORY DO Dec 24, 2020 09:57
== END 2020-12-24 10:45 | disposition home or self-care (01) ==
LOC: SDC 06:27
PROVIDERS: ATTEND Otolaryngology Otolaryngology/Facial Plastic Surgery
DX: J34.2 Deviated nasal septum (principal); J34.89 Other specified disorders of nose and nasal sinuses; R09.81 Nasal congestion; J34.3 Hypertrophy of nasal turbinates
CPT/HCPCS: 87081

== ENCOUNTER 2021-12-02 18:53 | Emergency (ER) | payer OTHER ==
[~2021-12-02] VITALS: Ht 167.7 cm; Wt 86.1 kg
[~2021-12-02 18:53] MED LIST changes: +AMOX-355 PO; +TRM50T PO
[2021-12-02 19:00] VITALS: BP 146/102
--- NOTE | 2021-12-02 19:11 | ED Integumentary General ---
General Chief Complaint: Bite-Animal/Human/Insect Stated Complaint: SPIDER BITE ON R HAND Source: patient Exam Limitations: no limitations History of Present Illness Date Seen by Provider: Dec 02, 2021 Time Seen by Provider: 19:06 Initial Comments To ER with reports that he was bitten on the right pointer finger by what he thinks might have been a brown recluse spider 15 minutes prior to arrival. He is concerned because in 2016 he was here 3 days after he was bitten by a brown recluse to the right posterior shoulder. He had an area of erythema at that time, 23,000 white count, he had systemic symptoms including nausea vomiting chills malaise body aches fever. Subsequently he was admitted on dapsone 50 mg twice daily and vancomycin as well as IV fluids. He is worried he may need that again. He is absent any symptoms except for a stinging sensation at the bite site which she is not sure if it is the thumb the pointer finger or the middle finger of the right hand. Timing/Duration: constant, getting worse Severity: mild Possible Cause: no cause identified Associated Symptoms: denies symptoms Allergies and Home Medications Allergies Coded Allergies: No Known Drug Allergies (Unverified , 12/24/20) Patient Home Medication List Home Medication List Reviewed: Yes Amoxicillin/Potassium Clav (Augmentin 500-125 Tablet) 1 Each Tablet, 1 EACH PO BID Prescribed by: RICA SIMMONS on 12/24/2045 Tramadol HCl (Tramadol HCl) 50 Mg Tablet, 50 MG PO TID PRN for PAIN-MODERATE (5- 7) Prescribed by: RICA SIMMONS on 12/24/20 0964 Review of Systems Review of Systems Constitutional: see HPI; No chills, No fever, No malaise, No weakness EENTM: see HPI Respiratory: no symptoms reported Cardiovascular: no symptoms reported Genitourinary: no symptoms reported Musculoskeletal: no symptoms reported Skin: see HPI Psychiatric/Neurological: No Symptoms Reported Endocrine: No Symptoms Reported Past Mznpnoo-Smyfco-Fldvfx Hx Immunizations Up To Date Tetanus Booster (TDap): Unknown Seasonal Allergies Seasonal Allergies: Yes Past Medical History Surgeries: No Respiratory: No Cardiac: No Neurological: No Genitourinary: No Gastrointestinal: No Musculoskeletal: No Endocrine: No HEENT: Yes (CHRONIC NASAL CONGESTION/SINUSITIS) Cancer: No Psychosocial: Yes Anxiety, Depression Integumentary: Yes Psoriasis Blood Disorders: No Adverse Reaction/Blood Tranf: No Family Medical History No Pertinent Family Hx, Diabetes Physical Exam Vital Signs Capillary Refill : General Appearance: WD/WN, no apparent distress HEENT: PERRL/EOMI, normal ENT inspection Neck: non-tender, full range of motion Cardiovascular: regular rate, rhythm, no murmur Respiratory: no respiratory distress, no accessory muscle use Neurologic/Psychiatric: alert, normal mood/affect, oriented x 3 Skin: normal color, warm/dry Skin Problem Location: upper extremities Skin Problem Character: other (There is a questionable 4 mm area of erythema to the pad of the proximal phalanx of the pointer finger right hand. Difficult to evaluate though because he has been holding the fingers (thumb pointer and middle finger) very tightly in route to the hospital. He is not sure which finger was involved.) Departure Communication (Admissions) To advise him that unfortunately there is no brown recluse antivenom available and there is no value and admitting him for prophylactic antibiotics and IV fluids. Dapsone 25 mg twice daily would be an option. Impression Primary Impression: Spider bite wound Disposition: HOME, SELF-CARE Condition: Stable Departure-Patient Inst. Decision time for Depature: 19:10 Referrals: NO,LOCAL PHYSICIAN (PCP/Family) Primary Care Physician Patient Instructions: Spider Bites Add. Discharge Instructions: 1. Return to ER for any concerns such as the symptoms that you had last time. Keep a close eye on this. Cool compresses to the area. Do not start the dap sone until tomorrow morning and ONLY start it if there is redness or swelling at the bite site. All discharge instructions reviewed with patient and/or family. Voiced understanding. Scripts Dapsone (Dapsone) 25 Mg Tablet 25 MG PO BID, #10 TAB Prov: CARMEN LANGSTON APRN 12/02/21 CARMEN LANGSTON APRN Dec 02, 2021 19:11
[2021-12-02] MEDS ORDERED: DAPS25TA2 PO (19:13)
== END 2021-12-02 19:19 | disposition home or self-care (01) ==
LOC: EDUNIT# 18:53 → ER 18:54
DX: S60.460A Insect bite (nonvenomous) of right index finger, initial encounter (principal); W57.XXXA Bitten or stung by nonvenomous insect and other nonvenomous arthropods, initial encounter
CPT/HCPCS: 99283